=== PATIENT | female | born 1950 | race Caucasian/White ===

== ENCOUNTER → 2016-05-24 | Outpatient (CLI) | payer OTHER ==
--- NOTE | 2016-05-24 11:07 | MA ---
Diagnostic Digital Mammogram Left Breast With iCAD Analysis Clinical Indications: Follow up probably benign left breast microcalcifications occurring at a lumpec brianda site that was also treated with radiation. Technique: Standard cephalocaudal and mediolateral oblique projections of the left breast are obtain ed. Also, true lateral and craniocaudal magnification views are performed. This examination is proces sed by the iCAD computer aided detection system. Comparison: October 31, 2015 and November 06, 2015. Breast density: Type 2; 25 to 50%. Findings: CAD was reviewed. Magnification views confirm a small grouping of amorphic calcification wi th an appearance consistent with evolving calcification associated with fat necrosis at the lumpectom y site. No associated soft tissue mass is seen. Impression: Benign 6 month mammographic follow up, BI-RADS 2. Recommendation: Resume routine mammographic screening in October 2016 as long as physical examination is negative. A verbal report was given to the patient. [facility] will send a result letter to the patient.
== END ==
LOC: FIMAGING 10:17
PROVIDERS: ATTEND Internal Medicine Hematology & Oncology
DX: Z12.39 Encounter for other screening for malignant neoplasm of breast (principal); R92.0 Mammographic microcalcification found on diagnostic imaging of breast
CPT/HCPCS: G0206

== ENCOUNTER → 2016-11-30 | Outpatient (CLI) | payer OTHER | LOC: FIMAGING 09:17 | PROVIDERS: ATTEND Internal Medicine Hematology & Oncology | DX: Z12.31 Encounter for screening mammogram for malignant neoplasm of breast (principal) | CPT/HCPCS: G0202 ==